=== PATIENT | female | born 1950 | race Caucasian/White ===

== ENCOUNTER 2016-10-01 00:23 | Observation (INO) | payer OTHER ==
[2016-10-01] MEDS ORDERED: NS 1,000 ML IV ONE (00:35)
[2016-10-01] MEDS ORDERED: ONDANSETRON 4 MG/2 ML VIAL ONE (00:35)
[2016-10-01 00:54] LABS: ADD MORPH? NO; ADD SCAN? NO; ATYPICAL LYMPHOCYTE FLAG 10 (0-99); FRAGMENT RBC FLAG 0 (0-99); HEMATOCRIT 43.1 % (38.0-47.0); HEMOGLOBIN 14.4 g/dL (12.6-16.3); LEFT SHIFT FLG 0 (0-99); LIPEMIA HEMOLYSIS FLAG 80 (0-99); MEAN CELL HEMOGLOBIN 31.2 pg (27.9-34.1); MEAN CELL HEMOGLOBIN CONCENTR. 33.4 g/dL (32.4-36.7); MEAN CELL VOLUME 93.3 fL (81.5-99.8); MEAN PLATELET VOLUME 9.3 fL (8.7-11.7); PLATELET CLUMPS FLAG 0 (0-99); PLATELET COUNT 310 10^3/uL (150-400); RED BLOOD CELL COUNT 4.62 10^6/uL (4.18-5.33); RED CELL DISTRIBUTION WIDTH 12.8 % (11.5-15.2)
[2016-10-01 00:55] LABS: ADD DIFF? YES
[2016-10-01] MEDS ORDERED: ONDANSETRON 4 MG/2 ML VIAL IVP ONE (00:55)
[2016-10-01] MEDS ORDERED: HYDROmorphONE/DILAUDID 1 MG/ML SYR ONE (00:55)
[2016-10-01] MEDS ORDERED: HYDROmorphONE/DILAUDID 1 MG/ML SYR IVP ONE (00:55)
[2016-10-01 00:57] LABS: ALANINE AMINOTRANSFERASE 28 IU/L (9-52); ALBUMIN 3.9 g/dL (3.5-5.0); ALKALINE PHOSPHATASE 53 IU/L (38-126); ANION GAP 9 mEq/L (8-16); ASPARTATE AMINOTRANSFERASE 18 IU/L (14-46); BILIRUBIN,TOTAL 0.5 mg/dL (0.1-1.4); BILIRUBIN-CONJUGATED 0.3 mg/dL (0.0-0.5); BILIRUBIN-UNCONJUGATED 0.2 mg/dL (0.0-1.1); CALCIUM 9.4 mg/dL (8.5-10.4); CARBON DIOXIDE 23 mEq/l (22-31); CHLORIDE 113 mEq/L (97-110); CREATININE 0.9 mg/dL (0.6-1.0); GLOMERULAR FILTRATION RATE > 60; GLUCOSE 104 mg/dL (70-100); POTASSIUM 4.3 mEq/L (3.5-5.2); SODIUM 145 mEq/L (134-144); TOTAL PROTEIN 6.7 g/dL (6.3-8.2)
[2016-10-01 01:26] LABS: PLATELET ESTIMATE ADEQUATE (ADEQ)
--- NOTE | 2016-10-01 01:41 | EDPHY ---
H & P Stated Complaint: pt c/o RUQ pain x 2 hrs, 1 episode of vomiting, hx of gallbladder probs Time Seen by Provider: 10/01/16 00:33 HPI/ROS: HPI The patient presents with acute onset of abdominal pain which is in her right upper quadrant and is crampy in nature, which began at 10:30 p.m. tonight. She had eaten dinner at about 7 o'clock. She then developed vomiting afterwards. The pain is now moderate in severity. It feels similar to the pain that she had in July of 2016 when she was diagnosed with gallstones. She has not had follow-up for this.. REVIEW OF SYSTEMS Constitutional: No fever, no chills. Eyes: No discharge. ENT: No sore throat. Cardiovascular: No chest pain, no palpitations. Respiratory: No cough, no shortness of breath. Gastrointestinal: See HPI Genitourinary: No hematuria. Musculoskeletal: No back pain. Skin: No rashes. Neurological: No headache. PMHx: Healthy Soc Hx: Works as a nurse on [employer] PHYSICAL General Appearance: Alert, no distress Eyes: Pupils equal and round no pallor or injection ENT, Mouth: Mucous membranes moist Respiratory: There are no retractions, lungs are clear to auscultation Cardiovascular: Regular rate and rhythm Gastrointestinal: Abdomen is soft and with tenderness in the right upper quadrant without rebound Neurological: A&O, moves all extremities Skin: Warm and dry, no rashes Musculoskeletal: Neck is supple non tender Extremities: symmetrical, full range of motion Psychiatric: Patient is oriented X 3, there is no agitation Source: Patient Exam Limitations: No limitations - Medical/Surgical History Hx Asthma: No Hx Chronic Respiratory Disease: No Hx Diabetes: No Hx Cardiac Disease: No Hx Renal Disease: No Hx Cirrhosis: No Hx Alcoholism: No Hx HIV/AIDS: No Hx Splenectomy or Spleen Trauma: No Other PMH: bipolar, depression, , kidney stones, gallbladder probs - Social History Smoking Status: Former smoker Constitutional: Initial Vital Signs Temperature (C) 36.6 C 10/01/16 00:28 Heart Rate 69 10/01/16 00:28 Respiratory Rate 18 10/01/16 00:28 Blood Pressure 169/72 H 10/01/16 00:28 O2 Sat (%) 99 10/01/16 00:28 O2 Delivery Mode Room Air Allergies/Adverse Reactions: carbamazepine [From Tegretol] Allergy (Mild, Verified 10/01/16 03:30) Itching oxycodone [Oxycodone] Allergy (Mild, Verified 10/01/16 03:30) Itching Sulfa (Sulfonamide Antibiotics) Allergy (Unknown, Verified 10/01/16 03:30) Unknown hydrocodone bitartrate [From Vicodin] Adverse Reaction (Intermediate, Verified 10/01/16 03:30) Vomiting Home Medications: Medication Instructions Recorded Cholecalciferol Vit D3 [Vitamin D3 3,000 units PO DAILY 07/22/15 (*)] Fluticasone Nasal [Flonase Nasal 2 sprays NASAL DAILY 07/22/15 [place]] Melatonin [Melatonin 3 MG (*)] 3 mg PO HS 07/22/15 Multivitamins [Multivitamin (*)] 1 each PO DAILY 07/22/15 Topiramate [Topamax 100MG (*)] 200 mg PO HS 07/22/15 Trintellix 10/01/16 Medical Decision Making - Diagnostics Imaging: Right upper quadrant ultrasound demonstrates multiple small stones and sludge in the gallbladder neck, gallbladder is dilated, no gallbladder wall thickening , pericholecystic fluid, normal CBD, discussed with Dr. Myers of Radiology. ED Course/Re-evaluation: The patient was given IV fluids, Zofran, Dilaudid with some improvement in her symptoms. Labs were obtained which were revealing for a elevated white blood cell count and elevated lipase. Ultrasound shows findings similar to prior in July, with multiple small gallstones and sludge in the gallbladder neck. I feel she may have early cholecystitis. I discussed the case with Dr. Colon of General surgery. He he performed consultation in the emergency room in plans to admit the patient for cholecystectomy and continued management. I have ordered a bed for the patient. Differential Diagnosis: This is a relatively healthy 66-year-old female who presents from home with several hours of upper abdominal pain associated with vomiting. On exam, she is afebrile with elevated blood pressure, vital signs are otherwise normal. She is quite tender in her right upper quadrant. Differential diagnosis includes cholecystitis, symptomatic cholelithiasis, gastritis, less likely appendicitis. - Data Points Laboratory Results: Laboratory Results 10/01/16 00:40 10/01/16 00:40 10/01/16 00:40 WBC 12.53 H 10^3/uL (3.80-9.50) RBC 4.62 10^6/uL (4.18-5.33) Hgb 14.4 g/dL (12.6-16.3) Hct 43.1 % (38.0-47.0) MCV 93.3 fL (81.5-99.8) MCH 31.2 pg (27.9-34.1) MCHC 33.4 g/dL (32.4-36.7) RDW 12.8 % (11.5-15.2) Plt Count 310 10^3/uL (150-400) MPV 9.3 fL (8.7-11.7) Neut % (Auto) Not Reported Lymph % (Auto) Not Reported [place] % (Auto) Not Reported Eos % (Auto) Not Reported Baso % (Auto) Not Reported Nucleat RBC Rel Count 0.0 % (0.0-0.2) Absolute Neuts (auto) Not Reported Absolute Lymphs (auto) Not Reported Absolute Monos (auto) Not Reported Absolute Eos (auto) Not Reported Absolute Basos (auto) Not Reported Absolute Nucleated RBC 0.00 10^3/uL (0-0.01) Immature Gran % Not Reported Seg Neutrophils % 23 % Lymphocytes % 66 % Monocytes % 5 % Eosinophils % 2 % Basophils % 4 % Immature Gran # Not Reported Absolute Seg Neuts 2.88 10^/uL (1.70-6.50) Absolute Lymphocytes 8.27 H 10^3/uL (1.00-3.00) Absolute Monocytes 0.63 10^3/uL (0.30-0.80) Absolute Eosinophils 0.25 10^3/uL (0.03-0.40) Absolute Basophils 0.50 H 10^3/uL (0.02-0.10) RBC/WBC/PLT Morphology NORMAL (NORMAL) Platelet Estimate ADEQUATE (ADEQ) Smear Review By Pending Sodium 145 H mEq/L (134-144) Potassium 4.3 mEq/L (3.5-5.2) Chloride 113 H mEq/L (97-110) Carbon Dioxide 23 mEq/l (22-31) Anion Gap 9 mEq/L (8-16) BUN 24 H mg/dL (7-23) Creatinine 0.9 mg/dL (0.6-1.0) Estimated GFR > 60 Glucose 104 H mg/dL (70-100) Calcium 9.4 mg/dL (8.5-10.4) Total Bilirubin 0.5 mg/dL (0.1-1.4) Conjugated Bilirubin 0.3 mg/dL (0.0-0.5) Unconjugated Bilirubin 0.2 mg/dL (0.0-1.1) AST 18 IU/L (14-46) ALT 28 IU/L (9-52) Alkaline Phosphatase 53 IU/L (38-126) Total Protein 6.7 g/dL (6.3-8.2) Albumin 3.9 g/dL (3.5-5.0) Lipase 425.0 H IU/L (23-300) Medications Given: Discontinued Medications Hydromorphone HCl (Dilaudid) 1 mg IVP EDNOW ONE Stop: 10/01/16 00:56 Last Admin: 10/01/16 01:03 Dose: 1 mg Sodium Chloride (Ns) 1,000 mls @ 0 mls/hr IV ONCE ONE PRN Reason: Wide Open Stop: 10/01/16 00:36 Last Admin: 10/01/16 00:38 Dose: 1,000 mls Ondansetron HCl (Zofran) 4 mg IVP EDNOW ONE Stop: 10/01/16 00:56 Last Admin: 10/01/16 00:38 Dose: 4 mg Departure - Departure Disposition: [facility] Acute Clinical Impression: Acute cholecystitis, Increased serum lipase level Condition: Fair
[2016-10-01] MEDS ORDERED: ONDANSETRON DISINTEGRATING 4 MG TAB PO PRN (02:03)
[2016-10-01] MEDS ORDERED: HYDROmorphONE/DILAUDID 1 MG/ML SYR IVP PRN (02:03)
[2016-10-01] MEDS ORDERED: ONDANSETRON 4 MG/2 ML VIAL IVP PRN (02:03)
[2016-10-01] MEDS ORDERED: D5W 1/2 NS W/ 20 KCl/L 1,000 ML IV SCH (02:15)
--- NOTE | 2016-10-01 02:39 | GHP ---
[f rep st] PREOP HISTORY AND PHYSICAL DATE OF ADMISSION: 10/01/2016 CHIEF COMPLAINT: Abdominal pain with nausea and vomiting. HISTORY OF PRESENT ILLNESS: This is an otherwise fairly healthy 66-year-old female, who presents thi s evening after an acute onset of abdominal pain. She states that she had 1 similar episode to this in July for which she did present to the emergency department. She was told to seek outpatient G eneral Surgical consultation which she did not do. She states that she was in her usual state of heal th earlier today. She had some fatty noodles for dinner and shortly thereafter began to have right u pper quadrant pain without radiation in a colicky fashion associated with nausea and vomiting. The p ain persisted which prompted her presentation here. Here in the emergency department she had fairly severe right upper quadrant pain with negative Garner sign. She did throw up a significant amount of most of her dinner from what it appears and does endorse having chills. The pain is 8/10 in worst in tensity without radiation and is described as a sharp right upper quadrant pain. Other than that, she has no complaints, otherwise feels well and is eager to have relief. PAST MEDICAL HISTORY: Significant for bipolar disease. PAST SURGICAL HISTORY: section and ectopic , both open, both performed in the late 80s. CURRENT MEDICATIONS: Include Topamax and Trintellix. ALLERGIES: To sulfa, oxycodone and Tegretol. 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 Social alcohol. Denies any illicit drug use. FAMILY HISTORY: Both mother and sister had gallbladders out, no other issues with anesthetic. PHYSICAL EXAMINATION: VITAL SIGNS: Temperature 36.6, heart rate 69, respirations 18, her blood pres sure is 169/72, and her sats are 99% on room air. GENERAL: She is alert and oriented, in no acute d istress. CV: She has a regular rate and rhythm. LUNGS: Clear to auscultation bilaterally. ABDOME N: Soft, tender to palpation in the right upper quadrant with an equivocal Garner sign. No rebound tenderness or guarding. Previous well-healed scars consistent with surgical history. EXTREMITIES: Warm and well perfused. LABORATORY DATA: Leukocytosis to 12,000 without left shift. Ultrasound shows multiple tiny stones without any free fluid, gallbladder wall thickening or ductal d ilatation. Her lipase is also elevated at 420. ASSESSMENT AND PLAN: A 66-year-old female with acute onset right upper quadrant pain consistent with cholecystitis, possible gallstone pancreatitis. I discussed the patient's diagnosis with her at the bedside tonight. I recommended cholecystectomy given her recurrent symptoms and new inflammation of the pancreas. I will plan to keep her n.p.o., hydrate with IV fluids, IV antibiotics, and plan for laparoscopic cholecystectomy this admission. Risks, benefits and alternatives were discussed. /[id number]/MODL
[2016-10-01] MEDS ORDERED: SKIN ADHESIVE (DERMABOND) 1 EACH TP ONE (03:16)
[2016-10-01] MEDS ORDERED: BUPIVACAINE/EPI 0.25% 30 ML SDV ONE (03:16)
[2016-10-01 05:40] LABS: % IMMATURE GRANULYOCYTES 0.3 % (0.0-1.1); ABSOLUTE IMMATURE GRANULOCYTES 0.04 10^3/uL (0.00-0.10); ADD DIFF? NO; ADD MORPH? NO; ADD SCAN? NO; ATYPICAL LYMPHOCYTE FLAG 0 (0-99); FRAGMENT RBC FLAG 0 (0-99); HEMATOCRIT 38.3 % (38.0-47.0); LEFT SHIFT FLG 0 (0-99); LIPEMIA HEMOLYSIS FLAG 90 (0-99); MEAN CELL HEMOGLOBIN 31.6 pg (27.9-34.1); MEAN CELL HEMOGLOBIN CONCENTR. 33.9 g/dL (32.4-36.7); MEAN CELL VOLUME 93.2 fL (81.5-99.8); MEAN PLATELET VOLUME 9.7 fL (8.7-11.7); PLATELET CLUMPS FLAG 0 (0-99); PLATELET COUNT 237 10^3/uL (150-400); RED BLOOD CELL COUNT 4.11 10^6/uL (4.18-5.33); RED CELL DISTRIBUTION WIDTH 12.5 % (11.5-15.2)
[2016-10-01 05:56] LABS: ALANINE AMINOTRANSFERASE 35 IU/L (9-52); ALBUMIN 3.1 g/dL (3.5-5.0); ALKALINE PHOSPHATASE 45 IU/L (38-126); ANION GAP 6 mEq/L (8-16); ASPARTATE AMINOTRANSFERASE 35 IU/L (14-46); BILIRUBIN,TOTAL 0.4 mg/dL (0.1-1.4); CALCIUM 8.4 mg/dL (8.5-10.4); CARBON DIOXIDE 22 mEq/l (22-31); CHLORIDE 114 mEq/L (97-110); CREATININE 0.8 mg/dL (0.6-1.0); GLOMERULAR FILTRATION RATE > 60; GLUCOSE 134 mg/dL (70-100); POTASSIUM 4.3 mEq/L (3.5-5.2); SODIUM 142 mEq/L (134-144); TOTAL PROTEIN 5.6 g/dL (6.3-8.2)
[2016-10-01] MEDS ORDERED: ceFAZolin 2 GM/DEXTROSE 100 ML IV ONE (06:00)
[2016-10-01] MEDS ORDERED: MIDAZOLAM 2 MG/2 ML VIAL ONE (07:53)
[2016-10-01] MEDS ORDERED: fentaNYL 100 MCG/2 ML INJ ONE ×3 (07:54→09:22)
[2016-10-01] MEDS ORDERED: PROPOFOL/EMULSION 500 MG/50 ML BOTTLE IV ONE (07:55)
--- NOTE | 2016-10-01 08:52 | POSTOPPROG ---
Post Op Note Date of Operation: 10/01/16 Surgeon: Leo Sanchez Anesthesiologist: Te Gutiérrez Anesthesia: GET(General Endotracheal) Pre-op Diagnosis: cholecystitis Post-op Diagnosis: same Procedure: Lap Rosette Findings: Acute rosette, critical view obtained Inf/Abcess present in the surg proc area at time of surgery?: No EBL: Minimal Specimen(s): gallbladder
--- NOTE | 2016-10-01 09:38 | US ---
Right Upper Quadrant Sonogram October 01, 2016 at 12:59 a.m. Indication: Right upper quadrant pain. Cholelithiasis. Comparison: Right upper quadrant ultrasound dated July 19, 2016. Findings: The normal size liver, measuring 14.9 cm in the midaxillary line has normal echogenicity an d echotexture. No sonographic mass or biliary dilation. The mildly dilated gallbladder contains numerous small mobile gallstones, several of which remain in the neck of the gallbladder when the patient is placed in the left lateral decubitus position. No son ographic Garner sign was elicited; however, the patient was medicated for pain in the emergency room prior to the study. The gallbladder wall is normal thickness. No pericholecystic fluid. Common bile duct is normal caliber (4 mm). No discernible common bile duct stone. Portal vein is patent. The abdominal aorta is normal caliber. The right kidney is unremarkable. No hydronephrosis. The right kidney measures 11.1 cm in length x 5. 4 x 4.8 cm axially. No free fluid. The imaged portions of the pancreatic neck, head, and central body are normal. The pa ncreatic tail is obscured by bowel gas. Impression: 1. Gallbladder hydrops and cholelithiasis. 2. No free fluid. The study was performed as an emergency on-call case and discussed by telephone with Dr. Wagner at 1 :30 a.m. The final interpretation is concordant with the original communication.
[2016-10-01] MEDS: HYDROmorphONE/DILAUDID 2 MG TAB PO PRN ×3 (15:43→21:56)
--- NOTE | 2016-10-01 16:51 | GOP ---
[f rep st] OPERATIVE REPORT DATE OF OPERATION: 10/01/2016 SURGEON: Leo Sanchez MD ELEVATED WORK PLATFORM OPERATOR: None. ANESTHESIA: General endotracheal. ANESTHESIOLOGIST: Dr. Gutiérrez PREOPERATIVE DIAGNOSIS: Cholecystitis. POSTOPERATIVE DIAGNOSIS: Cholecystitis. PROCEDURE PERFORMED: Laparoscopic cholecystectomy. FINDINGS: Acutely indurated gallbladder wall. Critical view obtained. SPECIMENS: Gallbladder. ESTIMATED BLOOD LOSS: 3 cc. DESCRIPTION OF PROCEDURE: The patient was greeted in the preoperative suite and once again, risks, b enefits, and alternatives were discussed at length, at which point in time the consent was signed. S he was then brought back to the operative suite, placed on the OR table in a supine position. After all anesthesia machines, including SCDs were on and functioning, World Health Organization timeout wa s performed, ending with all in agreement. Antibiotics were given on-call to the operating room. Ge neral endotracheal anesthesia was then induced without incident. The patient's abdomen was then wide ly prepped and draped in a typical sterile fashion. I entered the abdomen using the Veress needle in the left upper quadrant. I then insufflated with CO 2 to 15 mmHg, which was well tolerated by the patient. I then used the Visiport technique and a 10 m m port in an infraumbilical fashion to enter the patient's abdomen. Once successfully into the abdom en, I inserted 3 additional 5 mm ports, 1 in the subxiphoid, 2 in the right upper quadrant, all under direct visualization. Once this was done, I grabbed the dome of the liver and successfully retracted it over the liver. I then dissected the infundibulum, identified 2 and only 2 structures, leading towards the gallbladder proper, first the artery and then the cystic duct. I clipped them with 2 proximal, 1 distal, and the n successfully divided them with Endo Elsa. Once divided, I then directed my attention towards amanda ing the gallbladder off the liver bed fossa, which was done with electrocautery. Once successfully r emoved, I placed it into an EndoCatch bag and removed it. Hemostasis was achieved with electrocautery. I then evacuated all of the fluid out of the right uppe r quadrant. Local anesthetic was then infiltrated into all port sites, which were then removed under direct visualization. My infraumbilical port site was closed with an interrupted 0 Vicryl stitch in a [id number] fashion, noting excellent fascial reapproximation. The skin was then closed with running 4-0 Monocryl, over which Dermabond was placed. Patient was then extubated in the operative suite and taken to the PACU in satisfactory condition. ESTIMATED BLOOD LOSS: 3 cc. DRAINS: None. COUNTS: All counts reported as correct x2. /[id number]/MODL
[2016-10-01] MEDS: IBUPROFEN 600 MG TAB PO PRN (17:25)
[2016-10-01] MEDS ORDERED: TOPIRAMATE 100 MG TAB PO SCH (21:00)
[2016-10-02] MEDS: HYDROmorphONE/DILAUDID 2 MG TAB PO PRN ×4 (04:14→13:20)
[2016-10-02] MEDS: IBUPROFEN 600 MG TAB PO PRN ×2 (04:18→13:21)
--- NOTE | 2016-10-02 09:11 | SOAPPROG ---
SOAP Progress Note Assessment/Plan: Assessment/Plan POD#1 s/p lap aroldo - looking good, pain controlled - D/c home today, Rx for dilaudid 10/02/16 09:10 Objective: Vital Signs Temp Pulse Resp BP Pulse Ox 36.7 C 52 L 18 114/61 93 10/02/16 07:11 10/02/16 07:11 10/02/16 07:11 10/02/16 07:11 10/02/16 07:11 Laboratory Results 10/01/16 04:16 10/01/16 04:16 10/01/16 10/02/16 10/03/16 05:59 05:59 05:59 Intake Total 1481 3459 Output Total 4748 Balance 1481 504 ICD10 Worksheet Patient Problems: Problems Problem Status Diagnosed Acute cholecystitis Acute Elevated lipase Acute Chest pain Acute
--- NOTE | 2016-10-02 10:07 | GDS ---
[f rep st] DISCHARGE SUMMARY DISCHARGE DIAGNOSES: Acute cholecystitis. HOSPITAL COURSE: The patient was admitted from the emergency department on the evening of the . Ultrasound findings consistent with acute cholecystitis. She was subsequently taken to the operatin g room on the morning of the where she underwent uneventful laparoscopic cholecystectomy. She w as then transferred to the postanesthesia unit and then to the general medical floor where her diet w as advanced to a regular diet, which she was tolerating without any issue. Her pain was well control led on oral narcotics. She was subsequently discharged home in stable condition. DISCHARGE MEDICATIONS: Dilaudid 2 mg 1-2 every 4-6 as needed for pain. FOLLOWUP: She will follow up with me in 10-14 days. DISPOSITION: Home with boyfriend. /[id number]/MODL
[2016-10-02 11:18] VITALS: BP 111/52; PULSE 57; RESP 19; TEMP 97.8; O2SAT 94
== END 2016-10-02 13:36 | disposition home or self-care (01) ==
LOC: F3E 02:38
PROVIDERS: ADMIT Surgery; ATTEND Surgery
PROC: 0FT44ZZ Resection of Gallbladder, Percutaneous Endoscopic Approach (ICD-10-PCS; principal; 2016-10-01 07:59)
DX: K81.0 Acute cholecystitis (principal)
CPT/HCPCS: 47562; 76705; 88304; 96361; 96374; 96375; 99285; G0378; J0690; J1170; J2250; J2405; J2704; J3010

== ENCOUNTER → 2016-11-20 | Outpatient (CLI) | payer OTHER | LOC: FIMAGING 13:54 | DX: Z12.31 Encounter for screening mammogram for malignant neoplasm of breast (principal) | CPT/HCPCS: G0202 ==

== ENCOUNTER 2018-04-24 | Day surgery (SDC) | payer OTHER | END 2018-04-24 16:36 | disposition home or self-care (01) | PROC: 0TC78ZZ Extirpation of Matter from Left Ureter, Via Natural or Artificial Opening Endoscopic (ICD-10-PCS; principal; 2018-04-24) | PROC: 0T778DZ Dilation of Left Ureter with Intraluminal Device, Via Natural or Artificial Opening Endoscopic (ICD-10-PCS; principal; 2018-04-24) | CPT/HCPCS: 52325; 52332; 76001; 76770; 96361; 96374; 96375; 99284; C1758; C1769; C1894 ==